=== PATIENT | male | born 1995 | race Caucasian/White ===

== ENCOUNTER 2020-07-27 13:53 | Emergency (ER) | payer MEDICAID ==
[~2020-07-27] VITALS: Ht 172.7 cm; Wt 90.7 kg
[~2020-07-27 13:53] MED LIST: CIPR-260 PO; TYC3 PO
[2020-07-27 14:00] VITALS: BP_SYST 122
[2020-07-27] MEDS ORDERED: CEPH250C PO (14:42)
[2020-07-27] MEDS ORDERED: IBUP-1971 PO (14:42)
[2020-07-27 14:51] VITALS: BP_SYST 122
== END 2020-07-27 14:51 | disposition home or self-care (01) ==
LOC: SED 13:53
DX: L02.511 Cutaneous abscess of right hand (principal); L03.011 Cellulitis of right finger
CPT/HCPCS: 99283

== ENCOUNTER 2021-10-28 10:49 | Emergency (ER) | payer MEDICAID ==
[~2021-10-28] VITALS: Ht 172.7 cm; Wt 99.8 kg
[~2021-10-28 10:49] MED LIST changes: +CEPH250C PO; +IBUP-1971 PO
[2021-10-28 10:56] VITALS: BP_SYST 134
--- NOTE | 2021-10-28 10:56 | NUR ---
Patient to ER bed 6 to gown for evaluation. Side rails up. Report given to ANNIE.
--- NOTE | 2021-10-28 11:00 | NUR ---
Pt brought by self, A&Ox4, pt presents to ER with cough/ congestion and chest wall pain, VSS, afebrile, skin pink and warm, cap refill <3.
--- NOTE | 2021-10-28 11:10 | NUR ---
ER Dr. HERRERA at bedside examining patient.
[2021-10-28] MEDS ORDERED: IBUPROFEN 600 MG TABLET PO ONE (12:15)
[2021-10-28] MEDS ORDERED: D-ME118S48 PO (12:39)
[2021-10-28] MEDS ORDERED: ZIT250 PO (12:41)
[2021-10-28 12:49] VITALS: BP_SYST 134
--- NOTE | 2021-10-28 12:50 | NUR ---
Patient given written and verbal discharge instructions and verbalizes understanding. ER MD discussed with patient the results and treatment provided. Patient in stable condition. ID arm band removed. Rx of Zithromax and D-Methorpham given. Patient educated on pain management and to follow up with PMD. Pain Scale 2/10 . Opportunity for questions provided and answered. Medication side effect fact sheet provided.
== END 2021-10-28 12:50 | disposition home or self-care (01) ==
LOC: SED 10:49
DX: S29.011A Strain of muscle and tendon of front wall of thorax, initial encounter (principal); Z79.899 Other long term (current) drug therapy; X58.XXXA Exposure to other specified factors, initial encounter; Y93.89 Activity, other specified; Y92.89 Other specified places as the place of occurrence of the external cause; Y99.8 Other external cause status
CPT/HCPCS: 71045; 93005; 99283

== ENCOUNTER 2021-12-09 23:48 | Emergency (ER) | payer MEDICAID ==
[~2021-12-09] VITALS: Ht 175.3 cm; Wt 104.3 kg
[~2021-12-09 23:48] MED LIST changes: +D-ME118S48 PO; +ZIT250 PO
[2021-12-10 00:01] VITALS: BP_SYST 117
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
--- NOTE | 2021-12-10 00:40 | NUR ---
PT SEEN AND EXAMINE BY DR. NAVA.
[2021-12-10] MEDS ORDERED: SILVER SULFADIAZINE 1%, 25 GM TOPICAL CREAM (SSD) TP ONE (00:45)
--- NOTE | 2021-12-10 00:51 | NUR ---
WOUND CARE DONE ON LT HAND, CLEANSE WITH NS AND PAT DRY. APPLIED SILVERDENE ON AFFECTED AREA
[2021-12-10] MEDS ORDERED: DIPH-TET-PERTUS Vaccine 0.5 ML VIAL (ADACEL) I.M. ONE (01:30)
[2021-12-10] MEDS ORDERED: SILV50CR43 TP (01:31)
[2021-12-10] MEDS ORDERED: IBUP-1969 PO (01:31)
[2021-12-10] MEDS ORDERED: SULF1TAB48 PO (01:31)
[2021-12-10 01:39] VITALS: BP_SYST 128
--- NOTE | 2021-12-10 01:41 | NUR ---
DC PT HOME AAOX4, NO SOB NOTED AND NOT IN ANY DISTRESS. DC INSTRUCTION AND PRESCRIPTION WERE GIVEN TO PT ALSO INSTRUCTED TO F/U WITH HIS PCP. HE VERBALIZED UNDERSTANDING. PT AMBULATED WITH STEADY GAIT OUT OF THE DEPT.
[2021-12-10] MEDS ORDERED: SULFAMETHOXAZOLE/TRIMETHOPR DS 1 TABLET PO ONE (01:45)
== END 2021-12-10 01:40 | disposition home or self-care (01) ==
LOC: SED 23:48
DX: T23.212A Burn of second degree of left thumb (nail), initial encounter (principal); Z79.899 Other long term (current) drug therapy; X08.8XXA Exposure to other specified smoke, fire and flames, initial encounter; Y93.89 Activity, other specified; Y92.89 Other specified places as the place of occurrence of the external cause; Y99.8 Other external cause status
CPT/HCPCS: 90715; 99283

== ENCOUNTER 2023-04-17 22:26 | Emergency (ER) | payer MEDICAID ==
[~2023-04-17] VITALS: Ht 175.3 cm; Wt 99.8 kg
[~2023-04-17 22:26] MED LIST changes: +BROM118S61 PO; -D-ME118S48 PO; +IBUP-1969 PO; +SILV50CR43 TP; +SULF1TAB48 PO
[2023-04-17 22:30] VITALS: BP_SYST 123; PULSE 90; RESP 16; TEMP 97.9; O2SAT 97
[2023-04-18] MEDS ORDERED: [UNRECOGNIZED DRUG - CODE] PO (00:35)
[2023-04-18] MEDS ORDERED: AUG875 PO (00:35)
[2023-04-18] MEDS ORDERED: ALBMDI INH (00:42)
[2023-04-18 00:53] VITALS: BP_SYST 121; PULSE 90; RESP 16; TEMP 97.9; O2SAT 100
== END 2023-04-18 00:52 | disposition home or self-care (01) ==
LOC: SED 22:26
DX: J18.9 Pneumonia, unspecified organism (principal); R06.00 Dyspnea, unspecified; F17.210 Nicotine dependence, cigarettes, uncomplicated; Z79.899 Other long term (current) drug therapy
CPT/HCPCS: 71045; 99283